=== PATIENT | female | born 1960 | race Caucasian/White ===

== ENCOUNTER → 2019-11-21 | Day surgery (SDC) | payer MEDICAID, OTHER ==
[2019-10-30 13:39] VITALS: BMI 29.2
[~2019-11-21] MED LIST: LACTATED RINGERS 1,000 ML IV SCH; LIDOCAINE 1% 20 ML VIAL (10MG/ML) FOR IV START INTRADERMA PRN; LIDOCAINE 1% INJ 10MG/ML (20 ML MDV) ONE; PROPOFOL 10 MG/ML 20 ML VIAL IV ONE
[2019-11-21 10:04] VITALS: RESP 16; TEMP 97.1
--- NOTE | 2019-11-21 11:03 | P.PCN ---
Date of Procedure: 11/21/19 Procedure(s) Performed: BRIEF HISTORY: Patient is a 59-year-old pleasant 59 scheduled for an elective colonoscopy as a part of a evaluation of chronic diarrhea for the last 3 months duration. Has bowel movements and rhythm 5-6 a day which are loose to watery in consistency. She denies any blood or mucus in the stool. PROCEDURE PERFORMED: ColonoscopyWith biopsy and snare polypectomy . PREOPERATIVE DIAGNOSIS: chronic diarrhea of 3 months duration. IV sedation per Anesthesia. PROCEDURE: After informed consent was obtained, the patient, was brought into the endoscopy unit. IV sedation was administered by Anesthesia under continuous monitoring. Digital rectal examination was normal. Initially the Olympus CF-160 flexible video colonoscope was then inserted in the rectum, gradually advanced into the cecum without any difficulty. Careful examination was performed as the scope was gradually being withdrawn. Ileocecal valve and the appendiceal orifice were visualized and appeared normal. Prep was excellent. Mucosa of the cecum, ascending colon, transverse colon, descending colon, appeared normal. In the sigmoid colon there was a 6-7 mm sessile polyp that was removed by snare polypectomy. Rest of the sigmoid colon, and rectum appeared normal. Scattered sigmoid diverticulosis seen. Random biopsies were done from ascending and descending colon to rule out microscopic/collagenous colitis. Retroflexion was performed in the rectum and no lesions were seen. The patient tolerated the procedure well. IMPRESSION: 6-7 mm; sigmoid colon polyp status post polypectomy Scattered sigmoid diverticulosis RECOMMENDATIONS: Findings of this examination were discussed with the patient as well as a family. She was advised to follow with the biopsy results. If the biopsy shows an adenoma she can have a repeat colonoscopy in 5 years. The patient was advised to follow with the office in 2 weeks to discuss the biopsy results.
[2019-11-21 11:14] VITALS: PULSE 69
[2019-11-21 11:32] VITALS: BP 131/74
== END ==
LOC: ORWHC2ENDO 09:38
PROVIDERS: ATTEND Internal Medicine Gastroenterology
DX: D12.5 Benign neoplasm of sigmoid colon (principal); K52.831 Collagenous colitis; K52.839 Microscopic colitis, unspecified; K57.30 Diverticulosis of large intestine without perforation or abscess without bleeding; I25.10 Atherosclerotic heart disease of native coronary artery without angina pectoris; I10 Essential (primary) hypertension; E78.49 Other hyperlipidemia; Z95.5 Presence of coronary angioplasty implant and graft; Z90.710 Acquired absence of both cervix and uterus; F17.210 Nicotine dependence, cigarettes, uncomplicated; F32.9 Major depressive disorder, single episode, unspecified; Z79.82 Long term (current) use of aspirin; Z79.02 Long term (current) use of antithrombotics/antiplatelets; Z79.899 Other long term (current) drug therapy; Z88.5 Allergy status to narcotic agent
CPT/HCPCS: 45380; 45385; J2001; J2704; 88305; 88313

== ENCOUNTER → 2021-08-05 | Outpatient (CLI) | payer OTHER ==
--- NOTE | 2021-08-05 20:49 | CTL ---
EXAMINATION TYPE: CT Low Dose Lung DATE OF EXAM ORDERED: 08/05/2021 HISTORY: . Lung cancer screening CT DLP: 98.[address] CTDI: 3.0 mGy Automated exposure control for dose reduction was used. SCREENING VISIT: COMPARISON: TECHNIQUE: Low dose computed tomography scan was performed through the chest at 1 mm thick sections a nd reconstructed images in multiple planes at 1 mm and [address] DIAGNOSTIC QUALITY: Satisfactory FINDINGS: Diffuse emphysematous changes are seen. 3 mm nodule subpleural right upper lobe. There is cortical loss involving the right kidney and atherosclerotic changes aorta including the upp er abdominal region. Vague calcification is seen on the final image. Evaluation the aorta could be ob tained with contrast exam as clinically warranted. Coronary artery calcification noted. Left-sided breast calcifications incidentally noted. IMPRESSION: 1. Diffuse emphysematous changes with the sub-5 mm pulmonary nodules too small to characterize but li ricky benign. 2. Somewhat irregular calcification involving the abdominal aorta which is only partially included on exam and correlation with postcontrast CT. Suggested Correlate clinically. 3. Coronary artery calcification. CT LUNG RAD AND CT CHEST RECOMMENDATION: Lung-Rad 2 Benign Appearance or Behavior: Continue annual sc reening with LDCT in 12 months.
== END | disposition home or self-care (01) ==
LOC: RADCTMAIN 16:38
PROVIDERS: ATTEND Internal Medicine Critical Care Medicine
DX: R91.8 Other nonspecific abnormal finding of lung field (principal); I25.10 Atherosclerotic heart disease of native coronary artery without angina pectoris
CPT/HCPCS: 71271